=== PATIENT | female | born 1955 | race Caucasian/White ===

== ENCOUNTER → 2018-08-21 | Outpatient (CLI) | payer OTHER | LOC: FIMAGING 09:37 | PROVIDERS: ATTEND Family Medicine | DX: Z12.31 Encounter for screening mammogram for malignant neoplasm of breast (principal) ==

== ENCOUNTER → 2019-01-17 | Outpatient (CLI) | payer OTHER, MEDICARE | LOC: FIMAGING 13:48 | PROVIDERS: ATTEND Orthopaedic Surgery | DX: M17.11 Unilateral primary osteoarthritis, right knee (principal); M25.461 Effusion, right knee; K57.30 Diverticulosis of large intestine without perforation or abscess without bleeding ==

== ENCOUNTER 2019-01-23 08:46 | Observation (INO) | payer OTHER, MEDICARE ==
--- NOTE | 2019-01-23 06:45 | PDHPUP ---
History & Physical Update H&P update statement: This history and physical update is based on an assessment of the patient which was completed after admission or registration (within 24 hours), but prior to the surgery/procedure. H&P update: H&P reviewed & patient examined, no change in patient's condition since H&P completed
[~2019-01-23 08:46] MED LIST: ROPIVACAINE 0.2% 80 MG, EPINEPHrine 0.2 MG, KETOROLAC TROMETHAMINE 30 MG in SYRINGE 0 ML IU ONE; TRANEXAMIC ACID 3,000 MG in NS (SYRINGE) 50 ML IRR ONE
[2019-01-23] MEDS ORDERED: TRANEXAMIC ACID 3,000 MG/50 ML BAG IRR ONE (10:47)
[2019-01-23] MEDS ORDERED: DEXAMETHASONE 4 MG/ML VIAL IVP ONE (12:05)
[2019-01-23] MEDS ORDERED: FAMOTIDINE 20 MG TAB PO ONE (12:05)
[2019-01-23] MEDS ORDERED: ACETAMINOPHEN 325 MG TAB PO ONE (12:05)
[2019-01-23] MEDS ORDERED: ceFAZolin 2 GM/DEXTROSE 100 ML IV ONE (12:05)
[2019-01-23] MEDS ORDERED: LR 1,000 ML IV ONE (12:06)
[2019-01-23] MEDS ORDERED: MIDAZOLAM 2 MG/2 ML VIAL IVP ONE (14:18)
--- NOTE | 2019-01-23 14:20 | PDANEPAE ---
ANE History of Present Illness 64 yo wwwwfor right TKA ANE Past Medical History - Cardiovascular History Hx Hypertension: No Hx Arrhythmias: No Hx Chest Pain: No Hx Coronary Artery / Peripheral Vascular Disease: No Hx CHF / Valvular Disease: No Hx Palpitations: No - Pulmonary History Hx COPD: No Hx Asthma/Reactive Airway Disease: No Hx Recent Upper Respiratory Infection: No Hx Oxygen in Use at Home: No Hx Sleep Apnea: No Sleep Apnea Screening Result - Last Documented: Negative Pulmonary History Comment: asthma in past after a cold - Neurologic History Hx Cerebrovascular Accident: No Hx Seizures: No Hx Dementia: No - Endocrine History Hx Diabetes: No - Renal History Hx Renal Disorders: No - Liver History Hx Hepatic Disorders: No - Neurological & Psychiatric Hx Hx Neurological and Psychiatric Disorders: No - Cancer History Hx Cancer: No - Congenital Disorder History Hx Congenital Disorders: No - GI History Hx Gastrointestinal Disorders: Yes Gastrointestinal History Comment: acid reflux,hiatel hernia. diverticulitis - Other Health History Other Health History: none - Chronic Pain History Chronic Pain: No - Surgical History Prior Surgeries: none ANE Review of Systems Review of systems is: negative Review of Systems: - Exercise capacity METS (RN): 4 METS ANE Patient History - Allergies Allergies/Adverse Reactions: No Known Allergies Allergy (Verified 01/11/19 09:51) - Home Medications Home medications: home medication list seen and reviewed Home Medications: Glucosamine/Chondroitin [Glucosamine/Chondroitin (*)] 1 each PO DAILY 01/11/19 [ Last Taken 1 Week Ago ~01/16/19] Herbals/Supplements -Info Only 1 ea PO DAILY 01/11/19 [Last Taken 1 Week Ago ~] Ibuprofen [Motrin (*)] 600 mg PO BID 01/11/19 [Last Taken 1 Week Ago ~01/16/19] Loratadine [Claritin 10 mg] 10 mg PO DAILY PRN 01/11/19 [Last Taken 01/18/19] - NPO status NPO Since - Liquids (Date): 01/23/19 NPO Since - Liquids (Time): 10:15 NPO Since - Solids (Date): 01/22/19 NPO Since - Solids (Time): 22:00 - Anes Hx Anes Hx: no prior problems - Smoking Hx Smoking Status: Never smoked - Family Anes Hx Family Hx Anesthesia Complications: none ANE Labs/Vital Signs - Vital Signs Blood Pressure: 139/93 Heart Rate: 78 Respiratory Rate: 18 O2 Sat (%): 95 Height: 170.18 cm Weight: 95.254 kg ANE Physical Exam - Airway Neck exam: FROM Mallampati Score: Class 1 Mouth exam: normal dental/mouth exam - Pulmonary Pulmonary: no respiratory distress - Cardiovascular Cardiovascular: regular rate and rhythym - ASA Status ASA Status: II ANE Anesthesia Plan Anesthesia Plan: spinal Regional Anesthesia: adductor canal FNB
[2019-01-23] MEDS ORDERED: fentaNYL 100 MCG/2 ML INJ ONE ×2 (14:43→16:52)
[2019-01-23] MEDS ORDERED: PROPOFOL/EMULSION 500 MG/50 ML BOTTLE IV ONE ×2 (14:43→15:41)
--- NOTE | 2019-01-23 16:21 | POSTOPPROG ---
Post Op Note Date of Operation: 01/23/19 Surgeon: [facility] Lead Psychologist: Gela Morris PAC Anesthesiologist: Dr. Morataya Warm Anesthesia: Spinal, Other (Specify) (adductor canal block) Pre-op Diagnosis: right knee OA Post-op Diagnosis: same Indication: right knee pain Procedure: RTKA, robot assisted Findings: severe OA of right knee Inf/Abcess present in the surg proc area at time of surgery?: No EBL: 50-100
[2019-01-23] MEDS ORDERED: MAGNESIUM HYDROXIDE 30 ML UDCUP PO PRN (16:24)
[2019-01-23] MEDS ORDERED: BISACODYL 10 MG SUPP PR PRN (16:24)
[2019-01-23] MEDS ORDERED: METOCLOPRAMIDE 10 MG/2 ML VIAL IVP PRN (16:24)
[2019-01-23] MEDS ORDERED: ONDANSETRON DISINTEGRATING 4 MG TAB PO PRN (16:24)
[2019-01-23] MEDS ORDERED: POLYETHYLENE GLYCOL 3350 17 GM PKT PO PRN (16:24)
[2019-01-23] MEDS ORDERED: diphenhydrAMINE 25 MG CAP PO PRN (16:24)
[2019-01-23] MEDS ORDERED: LACTULOSE 20 GM/30 ML UDCUP PO PRN (16:24)
[2019-01-23] MEDS ORDERED: DIPHENOXYLATE/ATROPINE LOMOTIL 1 TAB PO PRN (16:24)
[2019-01-23] MEDS ORDERED: TEMAZEPAM 15 MG CAP PO PRN (16:24)
[2019-01-23] MEDS ORDERED: CYCLOBENZAPRINE 10 MG TAB PO PRN (16:24)
[2019-01-23] MEDS ORDERED: PROMETHAZINE HCL 25 MG/ML INJ IVP PRN ×2 (16:24→16:35)
[2019-01-23] MEDS ORDERED: PROMETHAZINE HCL 25 MG SUPPR PR PRN (16:24)
[2019-01-23] MEDS ORDERED: ONDANSETRON 4 MG/2 ML VIAL IVP PRN ×2 (16:24→16:35)
[2019-01-23] MEDS ORDERED: LR 1,000 ML IV SCH (16:30)
[2019-01-23] MEDS ORDERED: NALOXONE HCL 0.4 MG/ML INJ IVP PRN (16:35)
--- NOTE | 2019-01-23 16:36 | POSTANESTH ---
Post Anesthetic Evaluation Cardiovascular Status: Normal, Stable Respiratory Status: Normal, Stable Level of Consciousness/Mental Status: Can Participate in Eval Pain Control: Adequate, Prn Tx Ordered Nausea/Vomiting Control: Adequate, Prn Tx Ordered Complications Possibly Related to Anesthesia: None Noted
[2019-01-23] MEDS: fentaNYL 100 MCG/2 ML INJ IVP PRN ×3 (16:54→17:51)
[2019-01-23] MEDS: oxyCODONE IR 5 MG TAB PO PRN ×2 (18:36→21:44)
[2019-01-23] MEDS: ceFAZolin 2 GM/DEXTROSE 100 ML IV SCH (21:43)
[2019-01-23] MEDS: ACETAMINOPHEN 325 MG TAB PO SCH (21:44)
[2019-01-23] MEDS: FAMOTIDINE 20 MG TAB PO SCH (21:44)
[2019-01-23] MEDS: SENNOSIDES/DOCUSATE SODIUM TAB PO SCH (21:44)
[2019-01-23] MEDS: ASPIRIN 81 MG CHEWABLE TAB PO SCH (21:44)
[2019-01-24] MEDS: ACETAMINOPHEN 325 MG TAB PO SCH ×2 (05:03→11:14)
[2019-01-24] MEDS: ceFAZolin 2 GM/DEXTROSE 100 ML IV SCH (05:04)
[2019-01-24] MEDS: oxyCODONE IR 5 MG TAB PO PRN ×2 (06:36→10:04)
--- NOTE | 2019-01-24 08:05 | SOAPPROG ---
SOAP Progress Note Assessment/Plan: Assessment: s/p right TKA, ELIS assist - POD 1 Doing very well Plan: d/c home today - patient doing better than expected. She will have support of family Continue PT efforts - needs clearance from PT prior to d/c. WBAT, ROM but keep knee flexion < 90 degrees until POD 5-7. Begin outpatient PT within the next 7- 14 days. Continue VTE ppx- aspirin 81 mg BID x 4 weeks, KRAIG hose x 2 weeks, SCDs in hospital Continue oral pain medication - oxycodone, celebrex, tylenol Subjective: Patient states she is doing well, she has been able to tolerable the Zero Knee for several minutes. She feels well enough to go home. She denies SOB, CP, fever , chills. Objective: Vital Signs Temp Pulse Resp BP Pulse Ox 37.1 C 73 18 139/68 H 96 01/24/19 07:06 01/24/19 07:06 01/24/19 07:06 01/24/19 07:06 01/24/19 07:06 Laboratory Results 01/24/19 04:23 01/23/19 01/24/19 01/25/19 05:59 05:59 05:59 Intake Total 2875 350 Output Total 2030 Balance 845 350 Patient resting in bed, no acute distress. RLE: Wound dressings clean, dry and intact. KRAIG hose and SCDs in place. Lower leg compartments are soft and nontender. Patient can actively DF and PF right foot and great toe against resistance. Grossly NVI distally. ICD10 Worksheet Patient Problems: Problems Problem Status Onset Osteoarthritis of right knee Acute - ICD10 Problem Qualifiers (1) Osteoarthritis of right knee Qualifiers: Osteoarthritis type: primary Qualified Code(s): M17.11 - Unilateral primary osteoarthritis, right knee
--- NOTE | 2019-01-24 08:12 | PDDCSUM ---
Discharge Summary Discharge Summary: ADMISSION DIAGNOSIS: Right knee severe degenerative arthritis DISCHARGE DIAGNOSIS: Right knee severe degenerative arthritis OPERATION PERFORMED: January 23, 2019 Right total knee arthroplasty, Vidal robot assisted. POSTOPERATIVE COMPLICATIONS: None CONDITION ON DISCHARGE: Improved HPI: The patient is a 64 year old female who has end-stage arthritis of their knee. Clinical and radiographic features are consistent with this. Patient has failed attempts at conservative management, therefore, recommended operative right total knee replacement. DESCRIPTION OF HOSPITAL COURSE: The patient was admitted to the hospital on the morning of surgery and underwent a right total knee arthroplasty, Vidal robot assisted. Postoperatively, patient was treated with multimodal DVT prophylaxis, including aspirin 81 mg BID, SCDs, KRAIG hose. Patient was seen by PT and made good progress with ambulation and stairs. On the first post-operative day the patients H&H was 13.0/38.5. Patient was able to void spontaneously. At the time of discharge, patient was afebrile, wound was clean and dry. Patient is walking with a walker. DISPOSITION: The patient is discharged home and will have outpatient PT in the next 1-2 weeks. Patient may progress to full weightbearing on the right lower extremity as tolerated. KRAIG stockings for 2 weeks during the day time. Aspirin 81 mg BID for 4 weeks. Patient has prescriptions for Celebrex, oxycodone for pain control. She may also continue to take Tylenol as needed for pain. The patient will be seen by Dr. Green office in approximately 3 weeks. If there are any problems, patient is to call Dr. Green office.
[2019-01-24] MEDS: ASPIRIN 81 MG CHEWABLE TAB PO SCH (08:26)
[2019-01-24] MEDS: FAMOTIDINE 20 MG TAB PO SCH (08:26)
[2019-01-24] MEDS: SENNOSIDES/DOCUSATE SODIUM TAB PO SCH (08:26)
[2019-01-24] MEDS ORDERED: CETIRIZINE 10 MG TAB PO PRN (09:00)
--- NOTE | 2019-01-24 10:14 | ASMTLACE ---
LACE Length of stay for Answers: 2 days current admission Acuity / Level of Answers: Yes Care: Did the patient have an inpatient admission? Comorbidities - select Answers: Other Notes: Diverticulitis all that apply # of Emergency department Answers: 0 visits in the last 6 months Score: 6 Date Signed: 01/24/2019 10:12 AM Electronically Signed By:VICKIE Baird
[2019-01-24 11:09] VITALS: BP 117/65
--- NOTE | 2019-01-24 13:19 | GOP ---
[f rep st] OPERATIVE REPORT DATE OF OPERATION: 01/23/2019 SURGEON: Aubrey Jane MD [facility] NAVIGATOR: Lisa Morris P.A.-C ANESTHESIA: Spinal. PREOPERATIVE DIAGNOSIS: Right knee osteoarthritis. POSTOPERATIVE DIAGNOSIS: Right knee osteoarthritis. PROCEDURE PERFORMED: Right total knee arthroplasty with computer navigation, robotic assist. FINDINGS: ESTIMATED BLOOD LOSS: 30 cc. INDICATIONS: The patient is a 64-year-old female with severe and progressive pain and deformity of t he right knee unresponsive to conservative care. The risks and benefits of surgical intervention wer e explained in detail. DESCRIPTION OF PROCEDURE: The patient was brought to the operative room and placed on the table in t he supine position. Spinal anesthesia was induced without difficulty. A pneumatic tourniquet was appl ied about the right proximal thigh, and the leg was prepped and draped in a sterile fashion. The leg loredo was applied. After exsanguination by elevation the tourniquet was inflated to 250 mmHg. Incision was made anterior medial from the tibial tuberosity to a point cm proximal to the superior pole of the patella. Medial parapatellar arthrotomy was carried out from the superior pole of the patella and posteriorly in line with the fibers of the Type II VMO. The medial collateral liga ment was elevated and the infrapatellar fat pad was resected. The patella was everted and the articular surface was excised. A 35 mm patellar button was placed. Attention was turned first to the distal aspect of the femur. After exposure of the femur, 2 half pi ns were placed for fixation of the femoral array. In a similar fashion, 2 pins were placed anteromed ial on the tibia for fixation of the tibial array. External land marking and registration of the hip center was performed without difficulty. Internal femoral and tibial registration was carried out w ithout difficulty and the femoral and tibial checkpoints were placed and verified for accuracy. Attention was turned to the femur. The foot print for the size 4 femoral component was cut with the saw using the [employer] robotic system and verified for accuracy against the CT based plan. In a similar f ashion, the saw was used to cut the footprint for the size 4 tibial component using the [employer] system an d verified for accuracy against the CT based plan. The tibial articular surface was excised without d ifficulty, followed by the intercondylar box cut. The knee was extended and the remnants of the medial and lateral meniscus were excised. The posterior capsule was injected with ropivacaine, epinephrine and Toradol. A size tibial tray was p ositioned. Trial reduction was then carried out. There was excellent range of motion, alignment, and stability using the 4 x 10 mm polyethylene. All trials were then removed. The joint was thoroughly irrigated and carefully dried. The ____ compon ents were implanted. The permanent 4 x 10 mm polyethylene was placed without difficulty. The tourniquet was deflated and all bleeders were coagulated. The wound was thoroughly irrigated and closed using interrupted sutures of 2-0 Vicryl for the joint capsule. The subcu was closed with 3-0 V icryl and the skin with 4-0 Monocryl. Dermabond and Steri-Strips were applied followed by a compress gricel dressing. The patient was then moved from the operating room to the recovery room in good conditi on, having tolerated the procedure well. PATHOLOGY: Severe lateral patellar and femoral osteoarthritis. /[id number]/MODL
== END 2019-01-24 11:42 | disposition home or self-care (01) ==
LOC: F3N 11:56 → INTOOBSV 11:56 → F3N 18:14
PROVIDERS: ADMIT Orthopaedic Surgery; ATTEND Orthopaedic Surgery
DX: M17.11 Unilateral primary osteoarthritis, right knee (principal); K21.9 Gastro-esophageal reflux disease without esophagitis; K44.9 Diaphragmatic hernia without obstruction or gangrene; K57.30 Diverticulosis of large intestine without perforation or abscess without bleeding
CPT/HCPCS: 27447; 73560; 88311; 97161; C1776; J0171; J0690; J1100; J1885; J2250; J2704; J2795; J3010